=== PATIENT | male | born 1965 | race African-American/Black ===

== ENCOUNTER 2021-05-26 08:09 | Day surgery (SDC) | payer BC ==
[2021-05-25 10:22] VITALS: BMI 41.8
[2021-05-26 09:40] VITALS: TEMP 97.8
[2021-05-26 09:41] VITALS: BP 131/67; PULSE 65
== END 2021-05-26 09:45 | disposition home or self-care (01) ==
LOC: FASU-ENDO 08:09
PROVIDERS: ATTEND Internal Medicine Gastroenterology
PROC: 0DJD8ZZ Inspection of Lower Intestinal Tract, Via Natural or Artificial Opening Endoscopic (ICD-10-PCS; principal; 2021-05-26 08:51)
DX: Z12.11 Encounter for screening for malignant neoplasm of colon (principal); K57.30 Diverticulosis of large intestine without perforation or abscess without bleeding